=== PATIENT | female | born 1935 | race Caucasian/White ===

== ENCOUNTER 2016-10-27 10:44 | Inpatient (IN) | payer MEDICARE, OTHER ==
[~2016-10-27] VITALS: Ht 157.5 cm; Wt 61.2 kg
[~2016-10-27 10:44] MED LIST: ASPI81TA2 PO; CARV6.25 PO; LISI10TA5 PO
[2016-10-27] MEDS ORDERED: IV NS 0.9% 1,000 ML BAG IV ONE (11:30)
[2016-10-27] MEDS ORDERED: IV SET PRIMARY 1 EA INFUS.SET MC ONE (11:53)
[2016-10-27] MEDS ORDERED: IV NS 0.9% 1,000 ML ONE (11:53)
[2016-10-27 11:56] LABS: BASOPHILS # (AUTO) 0.1 /CMM (0.0-0.2); BASOPHILS % (AUTO) 0.8 % (0.0-2.0); DIFF TOTAL % 100 %; EOSINOPHILS # (AUTO) 0.1 /CMM (0.0-0.7); EOSINOPHILS % (AUTO) 1.9 % (0.0-6.0); HEMATOCRIT 43 % (33-45); HEMOGLOBIN 14.1 g/dL (11.5-14.8); LYMPHOCYTES # (AUTO) 1.6 /CMM (0.8-4.8); LYMPHOCYTES % (AUTO) 25.8 % (20.0-44.0); MEAN CORPUSCULAR HEMOGLOBIN 29 PG (26.0-33.0); MEAN CORPUSCULAR HGB CONC 33 g/dl (31.0-36.0); MEAN CORPUSCULAR VOLUME 90 fL (82-100); MONOCYTES # (AUTO) 0.4 /CMM (0.1-1.30); MONOCYTES % (AUTO) 7.1 % (2.0-12.0); NEUTROPHILS # (AUTO) 4.1 /CMM (1.8-8.9); NEUTROPHILS % (AUTO) 64.4 % (43.0-81.0); PLATELET COUNT (AUTO) 220 /CMM (150-450); RED BLOOD CELL COUNT(AUTO) 4.84 MIL/uL (4.0-5.2); WHITE BLOOD COUNT (AUTO) 6.3 K/uL (4.3-11.0)
[2016-10-27 12:03] LABS: ADD UA MICROSCOPIC NO; KETONES,URINE Negative (NEGATIVE); LEUKOCYTE ESTERASE ,URINE Negative (NEGATIVE)
[2016-10-27 12:03] LABS: ANION GAP 16 (5-14); CARBON DIOXIDE 23 mmol/L (21-32); CHLORIDE 103 mmol/L (98-107); CREATININE 0.9 mg/dL (0.6-1.3); GLUCOSE 82 mg/dL (74-106); SODIUM SERUM 137 mmol/L (136-145); UREA NITROGEN, BLOOD 22 mg/dL (7-18)
[2016-10-27 12:09] LABS: ALANINE AMINOTRANSFERASE 20 U/L (12-78); ALBUMIN 3.9 g/dL (3.4-5.0); ASPARTATE AMINOTRANSFERASE 32 U/L (15-37); BILIRUBIN,DIRECT 0.1 mg/dL (0.0-0.2); BILIRUBIN,TOTAL 0.7 mg/dL (0.2-1.0); TOTAL PROTEIN, SERUM 7.5 g/dL (6.4-8.2)
[2016-10-27 12:10] LABS: INDIRECT BILIRUBIN 0.6 mg/dL (0.0-1.1)
[2016-10-27 12:11] LABS: TROPONIN I < 0.017 ng/mL (0.00-0.056)
[2016-10-27] MEDS ORDERED: AMLO5TAB2 PO (12:22)
[2016-10-27] MEDS ORDERED: FENO54TA PO (12:22)
[2016-10-27] MEDS ORDERED: PANT40TA4 PO (12:22)
[2016-10-27 13:00] VITALS: BP 157/76
[2016-10-27] MEDS ORDERED: MAGNESIUM HYDROXIDE 30 ML UDC PO PRN (13:00)
[2016-10-27] MEDS ORDERED: Z GUARD REMEDY 2 OZ OINT TP PRN (13:00)
[2016-10-27] MEDS ORDERED: ONDANSETRON HCL/PF 4 MG/2 ML VIAL IVP PRN (13:00)
[2016-10-27] MEDS ORDERED: ACETAMINOPHEN 325 MG TABLET PO PRN (13:00)
[2016-10-27] MEDS ORDERED: MORPHINE SULFATE INJ 2 MG/ML DISP.SYRIN IV PRN (13:00)
[2016-10-27] MEDS ORDERED: MAG HYDROX/AL HYDROX/SIMETH 30 ML UDC PO PRN (13:00)
[2016-10-27] MEDS ORDERED: HYDROCODONE/APAP 5/325MG 1 EACH TABLET PO PRN (13:00)
[2016-10-27] MEDS ORDERED: ZOLPIDEM TARTRATE 5 MG TABLET PO PRN (13:00)
[2016-10-27] MEDS ORDERED: IV SET PRIMARY PUMP SET 1 EA INFUS.SET MC ONE (15:12)
[2016-10-27] MEDS: IV NS 0.9% 1,000 ML IV PRN (15:17)
[2016-10-27 16:00] VITALS: BP 167/92
[2016-10-27] MEDS: hydrALAZINE HCL 10 MG TABLET PO PRN (16:46)
[2016-10-27] MEDS: CARVEDILOL 6.25 MG TABLET PO SCH (16:46)
[2016-10-27 20:00] VITALS: BP 131/65
[2016-10-27 20:25] VITALS: BP 131/62
[2016-10-28 04:00] VITALS: BP 128/66
[2016-10-28] MEDS: IV NS 0.9% 1,000 ML IV PRN ×2 (06:14→16:07)
[2016-10-28] MEDS ORDERED: PANTOPRAZOLE 40 MG TABLET.DR PO SCH (07:30)
[2016-10-28 07:46] LABS: BASOPHILS # (AUTO) 0.1 /CMM (0.0-0.2); BASOPHILS % (AUTO) 1.3 % (0.0-2.0); DIFF TOTAL % 100 %; EOSINOPHILS # (AUTO) 0.1 /CMM (0.0-0.7); EOSINOPHILS % (AUTO) 2.4 % (0.0-6.0); HEMATOCRIT 37 % (33-45); HEMOGLOBIN 12.4 g/dL (11.5-14.8); LYMPHOCYTES # (AUTO) 1.2 /CMM (0.8-4.8); LYMPHOCYTES % (AUTO) 30.2 % (20.0-44.0); MEAN CORPUSCULAR HEMOGLOBIN 30 PG (26.0-33.0); MEAN CORPUSCULAR HGB CONC 34 g/dl (31.0-36.0); MEAN CORPUSCULAR VOLUME 89 fL (82-100); MONOCYTES # (AUTO) 0.4 /CMM (0.1-1.30); MONOCYTES % (AUTO) 9.9 % (2.0-12.0); NEUTROPHILS # (AUTO) 2.3 /CMM (1.8-8.9); NEUTROPHILS % (AUTO) 56.2 % (43.0-81.0); PLATELET COUNT (AUTO) 204 /CMM (150-450); RED BLOOD CELL COUNT(AUTO) 4.13 MIL/uL (4.0-5.2); WHITE BLOOD COUNT (AUTO) 4.1 K/uL (4.3-11.0)
[2016-10-28 08:00] VITALS: BP 174/90
[2016-10-28 08:07] LABS: CALCIUM, SERUM 8.5 mg/dL (8.5-10.1); CREATININE 0.9 mg/dL (0.6-1.3); PHOSPHORUS 3.1 mg/dL (2.5-4.9); POTASSIUM 3.3 mmol/L (3.5-5.1)
[2016-10-28] MEDS: CARVEDILOL 6.25 MG TABLET PO SCH ×2 (08:09→16:45)
[2016-10-28] MEDS ORDERED: AMLODIPINE BESYLATE 5 MG TABLET PO SCH (09:00)
[2016-10-28] MEDS ORDERED: POTASSIUM CHLORIDE 20 MEQ TAB.PRT.SR PO ONE (11:00)
[2016-10-28 16:00] VITALS: BP 179/88
[2016-10-28] MEDS ORDERED: IV SET PRIMARY PUMP SET 1 EA INFUS.SET MC ONE (16:07)
[2016-10-28 16:47] VITALS: BP 179/88
[2016-10-28] MEDS: hydrALAZINE HCL 10 MG TABLET PO PRN (16:47)
== END 2016-10-29 03:03 | disposition home or self-care (01) | DRG 392 ==
LOC: ER 10:46 → MED 13:09
PROVIDERS: ADMIT Internal Medicine; ATTEND Internal Medicine
DX: R13.10 Dysphagia, unspecified (principal); I48.91 Unspecified atrial fibrillation; I10 Essential (primary) hypertension; K21.9 Gastro-esophageal reflux disease without esophagitis; E78.5 Hyperlipidemia, unspecified; E86.0 Dehydration; Z87.11 Personal history of peptic ulcer disease
CPT/HCPCS: 36415; 80048-TC; 80076-TC; 81000-TC; 83690-TC; 83735-TC; 84100-TC; 84484-TC; 85025-TC; 87081-TC; 97001-TC; A4606; J7030; Z7610

== ENCOUNTER 2018-05-29 09:42 | Outpatient (CLI) | payer MEDICARE, OTHER ==
[~2018-05-29 09:42] MED LIST changes: +AMLO5TAB2 PO; -ASPI81TA2 PO; +FENO54TA PO; -LISI10TA5 PO; +PANT40TA4 PO
== END 2018-05-29 23:59 | disposition home or self-care (01) ==
LOC: RAD 09:42
PROVIDERS: ATTEND Family Medicine
DX: Z01.818 Encounter for other preprocedural examination (principal); I70.0 Atherosclerosis of aorta; M81.0 Age-related osteoporosis without current pathological fracture
CPT/HCPCS: 71046

== ENCOUNTER 2018-08-07 16:19 | Outpatient (CLI) | payer MEDICARE, OTHER ==
[~2018-08-07 16:19] MED LIST changes: -AMLO5TAB2 PO; +AMLO5TAB7 PO
== END 2018-08-07 23:59 | disposition home or self-care (01) ==
LOC: RAD 16:19
PROVIDERS: ATTEND Family Medicine
DX: M25.862 Other specified joint disorders, left knee (principal); I10 Essential (primary) hypertension; K21.9 Gastro-esophageal reflux disease without esophagitis; M19.90 Unspecified osteoarthritis, unspecified site
CPT/HCPCS: 73562

== ENCOUNTER 2023-10-13 21:17 | Inpatient (IN) | payer MEDICARE, OTHER ==
[~2023-10-13] VITALS: Ht 157.5 cm; Wt 62.1 kg
[~2023-10-13 21:17] MED LIST changes: +AMLO-212 PO; -AMLO5TAB7 PO; -PANT40TA4 PO; +PANT40TA49 PO
[2023-10-14] MEDS ORDERED: LORAZEPAM 1 MG TABLET ONE ×2 (01:26→01:29)
[2023-10-14] MEDS ORDERED: LORAZEPAM 1 MG TABLET PO ONE (01:30)
[2023-10-14 03:43] LABS: BASOPHILS # (AUTO) 0.1 K/uL (0.0-0.2); BASOPHILS % (AUTO) 1.1 % (0.0-2.0); EOSINOPHILS # (AUTO) 0.5 K/uL (0.0-0.7); EOSINOPHILS % (AUTO) 4.6 % (0.0-6.0); HEMATOCRIT 41 % (33-45); HEMOGLOBIN 13.2 g/dL (11.5-14.8); LYMPHOCYTES # (AUTO) 1.7 K/uL (0.8-4.8); LYMPHOCYTES % (AUTO) 16.1 % (20.0-44.0); MEAN CORPUSCULAR HEMOGLOBIN 30 PG (26.0-33.0); MEAN CORPUSCULAR HGB CONC 33 g/dl (31.0-36.0); MEAN CORPUSCULAR VOLUME 93 fL (82-100); MONOCYTES % (AUTO) 9.3 % (2.0-12.0); NEUTROPHILS # (AUTO) 7.4 K/uL (1.8-8.9); NEUTROPHILS % (AUTO) 68.9 % (43.0-81.0); PLATELET COUNT (AUTO) 356 K/uL (150-450); RED BLOOD CELL COUNT(AUTO) 4.38 MIL/uL (4.0-5.2); RED CELL DISTRIBUTION WIDTH 14.5 % (11.5-15.0); WHITE BLOOD COUNT (AUTO) 10.8 K/uL (4.3-11.0)
[2023-10-14 03:58] LABS: ALANINE AMINOTRANSFERASE 28 U/L (12-78); ALBUMIN 2.1 g/dL (3.4-5.0); ALCOHOL, BLOOD < 3 mg/dL (0-10); ALKALINE PHOSPHATASE 157 U/L (46-116); ASPARTATE AMINOTRANSFERASE 25 U/L (15-37); BILIRUBIN,DIRECT 0.1 mg/dL (0.0-0.2); BILIRUBIN,TOTAL 0.4 mg/dL (0.2-1.0); CARBON DIOXIDE 30 mmol/L (21-32); CHLORIDE 102 mmol/L (98-107); CREATININE 1.5 mg/dL (0.6-1.3); GLUCOSE 89 mg/dL (74-106); POTASSIUM 4.1 mmol/L (3.5-5.1); SODIUM SERUM 139 mmol/L (136-145); TOTAL PROTEIN, SERUM 6.8 g/dL (6.4-8.2); UREA NITROGEN, BLOOD 33 mg/dL (7-18)
[2023-10-14 04:09] LABS: ACETAMINOPHEN <10 ug/ml (10-30); SALICYLATE 0.6 mg/dL (2.8-20.0)
[2023-10-14] MEDS ORDERED: NYST1POW2 MC (08:27)
[2023-10-14] MEDS ORDERED: IPRA3AMP22 IH (08:27)
[2023-10-14] MEDS ORDERED: MAGN400O6 PO (08:27)
[2023-10-14] MEDS ORDERED: ATOR20TA PO (08:27)
[2023-10-14] MEDS ORDERED: MELA3TAB41 PO (08:27)
[2023-10-14] MEDS ORDERED: ASPI-1169 PO (08:27)
[2023-10-14] MEDS ORDERED: METO100T14 PO (08:27)
[2023-10-14] MEDS ORDERED: CLON0.1T PO (08:27)
[2023-10-14] MEDS ORDERED: NA P133E RC (08:27)
[2023-10-14] MEDS ORDERED: POLY119P3 PO (08:27)
[2023-10-14] MEDS ORDERED: ACET-2605 PO (08:27)
[2023-10-14] MEDS ORDERED: MULT-213 PO (08:27)
[2023-10-14] MEDS ORDERED: HYDR-4303 PO (08:27)
[2023-10-14] MEDS ORDERED: CHOL200059 PO (08:27)
[2023-10-14] MEDS ORDERED: SACU1TAB7 PO (08:27)
[2023-10-14] MEDS ORDERED: IODOPHOR BNOSTRILS (08:27)
[2023-10-14] MEDS ORDERED: [UNRECOGNIZED DRUG - CODE] TP (08:27)
[2023-10-14] MEDS ORDERED: ACET-868 PO (08:27)
[2023-10-14] MEDS ORDERED: DIGO125T PO (08:27)
[2023-10-14] MEDS ORDERED: PANT40TA2 PO (08:27)
[2023-10-14] MEDS ORDERED: BISA10SU11 RC (08:27)
[2023-10-14] MEDS ORDERED: DOCU100C36 PO (08:27)
[2023-10-14] MEDS ORDERED: DILT30TA14 PO (08:27)
[2023-10-14] MEDS ORDERED: AMIO200T5 PO (08:27)
[2023-10-14] MEDS ORDERED: RIVA15TA PO (08:27)
[2023-10-14] MEDS ORDERED: BUME1TAB8 PO (08:27)
[2023-10-14] MEDS ORDERED: BENZ-13 PO (08:27)
[2023-10-14] MEDS ORDERED: AMIN30LI2 PO (08:27)
[2023-10-14 09:30] VITALS: BP 145/67; TEMP 97.3; O2SAT 92
[2023-10-14] MEDS ORDERED: ACETAMINOPHEN 325 MG TABLET PO PRN ×2 (09:30→13:00)
[2023-10-14] MEDS ORDERED: LORAZEPAM 0.5 MG TABLET PO PRN (09:30)
[2023-10-14] MEDS ORDERED: BLOOD SUGAR DIAGNOSTIC 1 EACH STRIP IN ONE (09:30)
[2023-10-14] MEDS ORDERED: MAGNESIUM HYDROXIDE 30 ML UDC PO PRN ×2 (09:30→13:00)
[2023-10-14] MEDS ORDERED: MAG HYDROX/AL HYDROX/SIMETH 30 ML UDC PO PRN (09:30)
[2023-10-14] MEDS ORDERED: BISACODYL SUPP (10 MG) 10 MG/SUPP.RECT SUPP.RECT RC PRN (13:00)
[2023-10-14] MEDS ORDERED: CLONIDINE HCL 0.1 MG TABLET PO PRN (13:00)
[2023-10-14] MEDS ORDERED: ACETAMINOPHEN ES 500 MG TABLET PO PRN (13:00)
[2023-10-14] MEDS ORDERED: POLYETHYLENE GLYCOL 3350 17 GM POWD.PACK PO PRN (13:00)
[2023-10-14] MEDS ORDERED: BENZONATATE 100 MG CAPSULE PO PRN (13:00)
[2023-10-14 16:00] VITALS: BP 138/65; TEMP 97.8; O2SAT 91
[2023-10-14] MEDS: SACUBITRIL/VALSARTAN 1 EACH TABLET PO SCH (17:00)
[2023-10-14] MEDS: BUMETANIDE (1 MG) 1 MG TABLET PO SCH (17:22)
[2023-10-14] MEDS: DOCUSATE SODIUM 100 MG CAPSULE PO SCH (17:23)
[2023-10-14] MEDS: AMIODARONE HCL 200 MG TABLET PO SCH (17:23)
[2023-10-14] MEDS: CARVEDILOL 6.25 MG TABLET PO SCH (17:28)
[2023-10-14] MEDS: NYSTATIN TOP POWDER 15 GM BOTTLE TP SCH (17:28)
[2023-10-14 20:22] VITALS: BP 130/67; TEMP 97.8; O2SAT 93
[2023-10-14] MEDS: MIRTAZAPINE 15 MG TABLET PO SCH (21:51)
[2023-10-14] MEDS: ATORVASTATIN 10 MG TABLET PO SCH (21:51)
[2023-10-14] MEDS ORDERED: Medication Not On Formulary EA (Melatonin 3 MG) PO SCH (22:00)
[2023-10-14] MEDS ORDERED: ZOLPIDEM TARTRATE 5 MG TABLET PO PRN (22:00)
[2023-10-15 08:00] VITALS: BP 120/68; TEMP 97.7; O2SAT 98
[2023-10-15] MEDS: PANTOPRAZOLE 40 MG TABLET.DR PO SCH (08:12)
[2023-10-15] MEDS ORDERED: FENOFIBRATE 54 MG PO SCH (09:00)
[2023-10-15] MEDS: PROSTAT (PYXIS) 30 ML UDC PO SCH (09:00)
[2023-10-15] MEDS: DOCUSATE SODIUM 100 MG CAPSULE PO SCH ×2 (09:53→17:00)
[2023-10-15] MEDS: ASPIRIN 81 MG TAB.CHEW PO SCH (09:53)
[2023-10-15] MEDS: CHOLECALCIFEROL 1,000 UNIT TABLET (VIT D3) PO SCH (09:53)
[2023-10-15] MEDS: BUMETANIDE (1 MG) 1 MG TABLET PO SCH ×2 (09:53→17:24)
[2023-10-15] MEDS: AMIODARONE HCL 200 MG TABLET PO SCH ×2 (09:54→17:32)
[2023-10-15] MEDS: CARVEDILOL 6.25 MG TABLET PO SCH ×2 (09:55→17:31)
[2023-10-15] MEDS: DIGOXIN 0.125 MG TABLET PO SCH (09:55)
[2023-10-15] MEDS: AMLODIPINE BESYLATE 5 MG TABLET PO SCH (09:55)
[2023-10-15] MEDS: RIVAROXABAN 15 MG TABLET PO SCH (09:56)
[2023-10-15] MEDS: MULTIVIT W/MINERALS 1 TAB TABLET PO SCH (09:57)
[2023-10-15] MEDS: NYSTATIN TOP POWDER 15 GM BOTTLE TP SCH ×2 (10:02→17:24)
[2023-10-15] MEDS: SACUBITRIL/VALSARTAN 1 EACH TABLET PO SCH ×2 (10:20→17:30)
[2023-10-15 16:00] VITALS: BP 108/51; TEMP 98; O2SAT 93
[2023-10-15 19:20] LABS: APPEARANCE,URINE CLOUDY (CLEAR); BILIRUBIN,URINE NEGATIVE (NEGATIVE); BLOOD, URINE 1+ Ery/uL (NEGATIVE); COLOR,URINE YELLOW (YELLOW); KETONES,URINE NEGATIVE (NEGATIVE); LEUKOCYTE ESTERASE ,URINE 3+ (NEGATIVE); NITRITE, URINE POSITIVE (NEGATIVE); PROTEIN,URINE 2+ mg/dl (NEGATIVE); UGLUCOSE NEGATIVE (NEGATIVE); UROBILINOGEN,URINE 0.2 EU/dL (0.2)
[2023-10-15 19:27] LABS: ADD URINE CULTURE YES; BACTERIA,URINE 4+ /HPF (None Seen); RBC,URINE 21-50 /HPF (0-2); WBC,URINE 51-80 /HPF (0-3)
[2023-10-15 20:25] VITALS: BP 106/58; TEMP 97.9; O2SAT 93
[2023-10-15] MEDS: MIRTAZAPINE 15 MG TABLET PO SCH (21:40)
[2023-10-15] MEDS: OLANZAPINE 2.5 MG TABLET PO SCH (21:40)
[2023-10-15] MEDS: ATORVASTATIN 10 MG TABLET PO SCH (21:40)
[2023-10-16 08:00] VITALS: BP 117/55; TEMP 97.9; O2SAT 95
[2023-10-16] MEDS: PANTOPRAZOLE 40 MG TABLET.DR PO SCH (08:04)
[2023-10-16] MEDS: PROSTAT (PYXIS) 30 ML UDC PO SCH (09:00)
[2023-10-16] MEDS: BUMETANIDE (1 MG) 1 MG TABLET PO SCH ×2 (09:18→17:00)
[2023-10-16] MEDS: DOCUSATE SODIUM 100 MG CAPSULE PO SCH ×2 (09:19→17:40)
[2023-10-16] MEDS: ASPIRIN 81 MG TAB.CHEW PO SCH (09:20)
[2023-10-16] MEDS: RIVAROXABAN 15 MG TABLET PO SCH (09:20)
[2023-10-16] MEDS: AMLODIPINE BESYLATE 5 MG TABLET PO SCH (09:20)
[2023-10-16] MEDS: CARVEDILOL 6.25 MG TABLET PO SCH ×2 (09:22→17:00)
[2023-10-16] MEDS: CHOLECALCIFEROL 1,000 UNIT TABLET (VIT D3) PO SCH (09:22)
[2023-10-16] MEDS: MULTIVIT W/MINERALS 1 TAB TABLET PO SCH (09:23)
[2023-10-16] MEDS: DIGOXIN 0.125 MG TABLET PO SCH (09:23)
[2023-10-16] MEDS: AMIODARONE HCL 200 MG TABLET PO SCH ×2 (09:23→17:00)
[2023-10-16] MEDS: NYSTATIN TOP POWDER 15 GM BOTTLE TP SCH ×2 (09:26→17:32)
[2023-10-16] MEDS: SACUBITRIL/VALSARTAN 1 EACH TABLET PO SCH ×2 (09:26→17:00)
[2023-10-16 16:00] VITALS: BP 93/50; TEMP 97.9; O2SAT 96
[2023-10-16 20:29] VITALS: BP 123/59; TEMP 97.7; O2SAT 95
[2023-10-16] MEDS: NITROFURANTOIN/MONOHYDRATE MACROCRYSTALS 100 MG CAPSULE PO SCH (20:56)
[2023-10-16] MEDS: ATORVASTATIN 10 MG TABLET PO SCH (21:14)
[2023-10-16] MEDS: OLANZAPINE 2.5 MG TABLET PO SCH (21:14)
[2023-10-16] MEDS: MIRTAZAPINE 15 MG TABLET PO SCH (21:14)
[2023-10-17] MEDS: PANTOPRAZOLE 40 MG TABLET.DR PO SCH (07:45)
[2023-10-17 08:00] VITALS: BP 136/68; TEMP 97.9; O2SAT 97
[2023-10-17] MEDS: AMIODARONE HCL 200 MG TABLET PO SCH ×2 (09:00→16:47)
[2023-10-17] MEDS: DIGOXIN 0.125 MG TABLET PO SCH (09:00)
[2023-10-17] MEDS: PROSTAT (PYXIS) 30 ML UDC PO SCH (09:00)
[2023-10-17] MEDS: RIVAROXABAN 15 MG TABLET PO SCH (09:08)
[2023-10-17] MEDS: CHOLECALCIFEROL 1,000 UNIT TABLET (VIT D3) PO SCH (09:09)
[2023-10-17] MEDS: BUMETANIDE (1 MG) 1 MG TABLET PO SCH ×2 (09:10→16:46)
[2023-10-17] MEDS: DOCUSATE SODIUM 100 MG CAPSULE PO SCH ×2 (09:10→16:49)
[2023-10-17] MEDS: CARVEDILOL 6.25 MG TABLET PO SCH ×2 (09:10→16:48)
[2023-10-17] MEDS: AMLODIPINE BESYLATE 5 MG TABLET PO SCH (09:11)
[2023-10-17] MEDS: MULTIVIT W/MINERALS 1 TAB TABLET PO SCH (09:11)
[2023-10-17] MEDS: ASPIRIN 81 MG TAB.CHEW PO SCH (09:15)
[2023-10-17] MEDS: NITROFURANTOIN/MONOHYDRATE MACROCRYSTALS 100 MG CAPSULE PO SCH ×2 (09:15→22:06)
[2023-10-17] MEDS: SACUBITRIL/VALSARTAN 1 EACH TABLET PO SCH ×2 (09:16→16:51)
[2023-10-17] MEDS: NYSTATIN TOP POWDER 15 GM BOTTLE TP SCH ×2 (09:18→16:51)
[2023-10-17] MEDS: HYDROCODONE/APAP 5/325MG TABLET PO PRN ×2 (13:41→22:12)
[2023-10-17 16:00] VITALS: BP 104/55; TEMP 97.9; O2SAT 95
[2023-10-17 19:59] VITALS: BP 104/60; TEMP 98.1; O2SAT 98
[2023-10-17] MEDS: OLANZAPINE 2.5 MG TABLET PO SCH (22:07)
[2023-10-17] MEDS: MIRTAZAPINE 15 MG TABLET PO SCH (22:07)
[2023-10-17] MEDS: ATORVASTATIN 10 MG TABLET PO SCH (22:07)
[2023-10-18 08:00] VITALS: BP 111/55; TEMP 98.1; O2SAT 97
[2023-10-18] MEDS: PANTOPRAZOLE 40 MG TABLET.DR PO SCH (08:23)
[2023-10-18] MEDS: Z GUARD REMEDY 4 OZ OINT TP SCH (08:32)
[2023-10-18] MEDS: ASPIRIN 81 MG TAB.CHEW PO SCH (08:33)
[2023-10-18] MEDS: MULTIVIT W/MINERALS 1 TAB TABLET PO SCH (08:33)
[2023-10-18] MEDS: CARVEDILOL 6.25 MG TABLET PO SCH ×2 (08:34→16:51)
[2023-10-18] MEDS: AMIODARONE HCL 200 MG TABLET PO SCH ×2 (08:34→16:51)
[2023-10-18] MEDS: NITROFURANTOIN/MONOHYDRATE MACROCRYSTALS 100 MG CAPSULE PO SCH ×2 (08:35→21:18)
[2023-10-18] MEDS: DOCUSATE SODIUM 100 MG CAPSULE PO SCH ×2 (08:35→16:51)
[2023-10-18] MEDS: AMLODIPINE BESYLATE 5 MG TABLET PO SCH (08:35)
[2023-10-18] MEDS: CHOLECALCIFEROL 1,000 UNIT TABLET (VIT D3) PO SCH (08:35)
[2023-10-18] MEDS: DIGOXIN 0.125 MG TABLET PO SCH (08:36)
[2023-10-18] MEDS: BUMETANIDE (1 MG) 1 MG TABLET PO SCH ×2 (08:36→16:51)
[2023-10-18] MEDS: RIVAROXABAN 15 MG TABLET PO SCH (08:36)
[2023-10-18] MEDS: NYSTATIN TOP POWDER 15 GM BOTTLE TP SCH ×2 (08:37→16:53)
[2023-10-18] MEDS: SACUBITRIL/VALSARTAN 1 EACH TABLET PO SCH ×2 (08:38→16:53)
[2023-10-18] MEDS: PROSTAT (PYXIS) 30 ML UDC PO SCH (09:36)
[2023-10-18 16:00] VITALS: BP 126/62; TEMP 97.9; O2SAT 96
[2023-10-18 20:24] VITALS: BP 120/78; TEMP 98.1; O2SAT 95
[2023-10-18] MEDS: ATORVASTATIN 10 MG TABLET PO SCH (21:17)
[2023-10-18] MEDS: MIRTAZAPINE 15 MG TABLET PO SCH (21:17)
[2023-10-18] MEDS: OLANZAPINE 2.5 MG TABLET PO SCH (21:18)
[2023-10-19 08:00] VITALS: BP 136/67; TEMP 97.4; O2SAT 99
[2023-10-19] MEDS: CHOLECALCIFEROL 1,000 UNIT TABLET (VIT D3) PO SCH (09:06)
[2023-10-19] MEDS: DOCUSATE SODIUM 100 MG CAPSULE PO SCH ×2 (09:06→16:53)
[2023-10-19] MEDS: MULTIVIT W/MINERALS 1 TAB TABLET PO SCH (09:06)
[2023-10-19] MEDS: ASPIRIN 81 MG TAB.CHEW PO SCH (09:06)
[2023-10-19] MEDS: NITROFURANTOIN/MONOHYDRATE MACROCRYSTALS 100 MG CAPSULE PO SCH (09:06)
[2023-10-19] MEDS: PANTOPRAZOLE 40 MG TABLET.DR PO SCH (09:06)
[2023-10-19] MEDS: BUMETANIDE (1 MG) 1 MG TABLET PO SCH ×2 (09:07→16:53)
[2023-10-19] MEDS: CARVEDILOL 6.25 MG TABLET PO SCH ×2 (09:10→16:54)
[2023-10-19] MEDS: DIGOXIN 0.125 MG TABLET PO SCH (09:10)
[2023-10-19] MEDS: AMIODARONE HCL 200 MG TABLET PO SCH ×2 (09:10→16:55)
[2023-10-19] MEDS: AMLODIPINE BESYLATE 5 MG TABLET PO SCH (09:10)
[2023-10-19] MEDS: RIVAROXABAN 15 MG TABLET PO SCH (09:13)
[2023-10-19] MEDS: Z GUARD REMEDY 4 OZ OINT TP SCH (09:28)
[2023-10-19] MEDS: SACUBITRIL/VALSARTAN 1 EACH TABLET PO SCH ×2 (09:29→16:55)
[2023-10-19] MEDS: NYSTATIN TOP POWDER 15 GM BOTTLE TP SCH ×2 (09:31→17:05)
[2023-10-19 14:44] LABS: BASOPHILS # (AUTO) 0.1 K/uL (0.0-0.2); BASOPHILS % (AUTO) 1.2 % (0.0-2.0); EOSINOPHILS # (AUTO) 0.2 K/uL (0.0-0.7); EOSINOPHILS % (AUTO) 2.1 % (0.0-6.0); HEMATOCRIT 35 % (33-45); HEMOGLOBIN 11.4 g/dL (11.5-14.8); LYMPHOCYTES # (AUTO) 1.3 K/uL (0.8-4.8); LYMPHOCYTES % (AUTO) 14.5 % (20.0-44.0); MEAN CORPUSCULAR HEMOGLOBIN 30 PG (26.0-33.0); MEAN CORPUSCULAR HGB CONC 33 g/dl (31.0-36.0); MEAN CORPUSCULAR VOLUME 91 fL (82-100); MONOCYTES % (AUTO) 10.9 % (2.0-12.0); NEUTROPHILS # (AUTO) 6.4 K/uL (1.8-8.9); NEUTROPHILS % (AUTO) 71.3 % (43.0-81.0); PLATELET COUNT (AUTO) 337 K/uL (150-450); RED CELL DISTRIBUTION WIDTH 14.6 % (11.5-15.0)
[2023-10-19 15:19] LABS: ALANINE AMINOTRANSFERASE 17 U/L (12-78); ALBUMIN 1.8 g/dL (3.4-5.0); ALKALINE PHOSPHATASE 104 U/L (46-116); ASPARTATE AMINOTRANSFERASE 15 U/L (15-37); BILIRUBIN,TOTAL 0.4 mg/dL (0.2-1.0); CALCIUM, SERUM 8.4 mg/dL (8.5-10.1); CARBON DIOXIDE 23 mmol/L (21-32); CHLORIDE 100 mmol/L (98-107); CREATININE 2.1 mg/dL (0.6-1.3); GLUCOSE 135 mg/dL (74-106); SODIUM SERUM 134 mmol/L (136-145); TOTAL PROTEIN, SERUM 6.1 g/dL (6.4-8.2); UREA NITROGEN, BLOOD 56 mg/dL (7-18)
[2023-10-19 16:00] VITALS: BP 116/65; TEMP 98.6; O2SAT 94
[2023-10-19] MEDS ORDERED: AMOX/CLAVULANATE 500 MG TABLET PO SCH (17:00)
[2023-10-19] MEDS: AMOX/CLAVULANATE 250 MG TABLET PO SCH (17:02)
[2023-10-19 20:00] VITALS: BP 138/75; TEMP 98.6; O2SAT 98
[2023-10-19] MEDS: MIRTAZAPINE 15 MG TABLET PO SCH (21:50)
[2023-10-19] MEDS: ATORVASTATIN 10 MG TABLET PO SCH (21:50)
[2023-10-19] MEDS: OLANZAPINE 2.5 MG TABLET PO SCH (21:51)
[2023-10-20 08:00] VITALS: BP 110/53; TEMP 97.8; O2SAT 96
[2023-10-20] MEDS: CHOLECALCIFEROL 1,000 UNIT TABLET (VIT D3) PO SCH (11:40)
[2023-10-20] MEDS: AMIODARONE HCL 200 MG TABLET PO SCH ×2 (11:40→17:32)
[2023-10-20] MEDS: DIGOXIN 0.125 MG TABLET PO SCH (11:40)
[2023-10-20] MEDS: CARVEDILOL 6.25 MG TABLET PO SCH ×2 (11:40→17:32)
[2023-10-20] MEDS: ASPIRIN 81 MG TAB.CHEW PO SCH (11:42)
[2023-10-20] MEDS: AMLODIPINE BESYLATE 5 MG TABLET PO SCH (11:42)
[2023-10-20] MEDS: PANTOPRAZOLE 40 MG TABLET.DR PO SCH (11:43)
[2023-10-20] MEDS: MULTIVIT W/MINERALS 1 TAB TABLET PO SCH (11:43)
[2023-10-20] MEDS: DOCUSATE SODIUM 100 MG CAPSULE PO SCH ×2 (11:43→17:34)
[2023-10-20] MEDS: NYSTATIN TOP POWDER 15 GM BOTTLE TP SCH (11:44)
[2023-10-20] MEDS: Z GUARD REMEDY 4 OZ OINT TP SCH (11:45)
[2023-10-20] MEDS: RIVAROXABAN 15 MG TABLET PO SCH (11:53)
[2023-10-20] MEDS: PROSOURCE / PROSTAT (PYXIS) 30 ML UDC PO SCH (12:13)
[2023-10-20] MEDS: AMOX/CLAVULANATE 250 MG TABLET PO SCH ×2 (13:14→17:40)
[2023-10-20 16:00] VITALS: BP 130/57; TEMP 98; O2SAT 97
[2023-10-20 20:16] VITALS: BP 103/53; TEMP 98; O2SAT 96
[2023-10-20] MEDS: ATORVASTATIN 10 MG TABLET PO SCH (21:36)
[2023-10-20] MEDS: MIRTAZAPINE 15 MG TABLET PO SCH (21:36)
[2023-10-20] MEDS: OLANZAPINE 2.5 MG TABLET PO SCH (21:36)
[2023-10-21] MEDS: PANTOPRAZOLE 40 MG TABLET.DR PO SCH (07:38)
[2023-10-21 08:00] VITALS: BP 137/60; TEMP 98.4; O2SAT 95
[2023-10-21] MEDS: AMIODARONE HCL 200 MG TABLET PO SCH ×2 (09:00→17:00)
[2023-10-21] MEDS: AMLODIPINE BESYLATE 5 MG TABLET PO SCH (09:00)
[2023-10-21] MEDS: PROSOURCE / PROSTAT (PYXIS) 30 ML UDC PO SCH (09:00)
[2023-10-21] MEDS: DOCUSATE SODIUM 100 MG CAPSULE PO SCH ×2 (09:48→17:00)
[2023-10-21] MEDS: CHOLECALCIFEROL 1,000 UNIT TABLET (VIT D3) PO SCH (09:48)
[2023-10-21] MEDS: MULTIVIT W/MINERALS 1 TAB TABLET PO SCH (09:48)
[2023-10-21] MEDS: DIGOXIN 0.125 MG TABLET PO SCH (09:48)
[2023-10-21] MEDS: ASPIRIN 81 MG TAB.CHEW PO SCH (09:49)
[2023-10-21] MEDS: CARVEDILOL 6.25 MG TABLET PO SCH ×2 (09:49→17:00)
[2023-10-21] MEDS: RIVAROXABAN 15 MG TABLET PO SCH (09:50)
[2023-10-21] MEDS: AMOX/CLAVULANATE 250 MG TABLET PO SCH ×2 (09:52→18:02)
[2023-10-21] MEDS: Z GUARD REMEDY 4 OZ OINT TP SCH (09:53)
[2023-10-21] MEDS: HYDROCODONE/APAP 5/325MG TABLET PO PRN (14:40)
[2023-10-21 15:05] LABS: BASOPHILS # (AUTO) 0.1 K/uL (0.0-0.2); BASOPHILS % (AUTO) 0.7 % (0.0-2.0); EOSINOPHILS # (AUTO) 0.1 K/uL (0.0-0.7); EOSINOPHILS % (AUTO) 1.6 % (0.0-6.0); HEMATOCRIT 35 % (33-45); HEMOGLOBIN 11.3 g/dL (11.5-14.8); LYMPHOCYTES # (AUTO) 0.9 K/uL (0.8-4.8); LYMPHOCYTES % (AUTO) 10.2 % (20.0-44.0); MEAN CORPUSCULAR HEMOGLOBIN 29 PG (26.0-33.0); MEAN CORPUSCULAR HGB CONC 33 g/dl (31.0-36.0); MEAN CORPUSCULAR VOLUME 90 fL (82-100); MONOCYTES # (AUTO) 1.1 K/uL (0.1-1.30); MONOCYTES % (AUTO) 12.4 % (2.0-12.0); NEUTROPHILS # (AUTO) 6.9 K/uL (1.8-8.9); NEUTROPHILS % (AUTO) 75.1 % (43.0-81.0); PLATELET COUNT (AUTO) 362 K/uL (150-450); RED BLOOD CELL COUNT(AUTO) 3.85 MIL/uL (4.0-5.2); RED CELL DISTRIBUTION WIDTH 14.6 % (11.5-15.0); WHITE BLOOD COUNT (AUTO) 9.1 K/uL (4.3-11.0)
[2023-10-21 16:00] VITALS: BP 103/54; TEMP 98.4; O2SAT 95
[2023-10-21 16:11] LABS: ALANINE AMINOTRANSFERASE 33 U/L (12-78); ALBUMIN 1.8 g/dL (3.4-5.0); ALKALINE PHOSPHATASE 100 U/L (46-116); ASPARTATE AMINOTRANSFERASE 31 U/L (15-37); BILIRUBIN,TOTAL 0.3 mg/dL (0.2-1.0); CALCIUM, SERUM 8.4 mg/dL (8.5-10.1); CARBON DIOXIDE 25 mmol/L (21-32); CHLORIDE 97 mmol/L (98-107); CREATININE 2.3 mg/dL (0.6-1.3); GLUCOSE 117 mg/dL (74-106); MAGNESIUM 2.1 mg/dL (1.8-2.4); PHOSPHORUS 3.2 mg/dL (2.5-4.9); SODIUM SERUM 131 mmol/L (136-145); TOTAL PROTEIN, SERUM 6.3 g/dL (6.4-8.2); UREA NITROGEN, BLOOD 59 mg/dL (7-18)
[2023-10-21 16:38] LABS: ANISOCYTOSIS 1+; EOSINOPHILS % (MANUAL) 2 % (0-4); LYMPHOCYTES % (MANUAL) 10 % (16-48); MONOCYTES % (MANUAL) 7 % (0-11.0); NEUTROPHILS % (MANUAL) 81 (42-76); PLATELET ESTIMATE ADEQUATE
[2023-10-21 20:00] VITALS: BP 113/58; TEMP 98.1; O2SAT 97
[2023-10-21] MEDS: MIRTAZAPINE 15 MG TABLET PO SCH (22:28)
[2023-10-21] MEDS: ATORVASTATIN 10 MG TABLET PO SCH (22:28)
[2023-10-21] MEDS: OLANZAPINE 2.5 MG TABLET PO SCH (22:29)
[2023-10-22 08:00] VITALS: BP 122/50; TEMP 97.7; O2SAT 94
[2023-10-22] MEDS: ASPIRIN 81 MG TAB.CHEW PO SCH (08:08)
[2023-10-22] MEDS: DOCUSATE SODIUM 100 MG CAPSULE PO SCH ×2 (08:09→17:00)
[2023-10-22] MEDS: CHOLECALCIFEROL 1,000 UNIT TABLET (VIT D3) PO SCH (08:09)
[2023-10-22] MEDS: DIGOXIN 0.125 MG TABLET PO SCH (08:09)
[2023-10-22] MEDS: PANTOPRAZOLE 40 MG TABLET.DR PO SCH (08:09)
[2023-10-22] MEDS: RIVAROXABAN 15 MG TABLET PO SCH (08:09)
[2023-10-22] MEDS: MULTIVIT W/MINERALS 1 TAB TABLET PO SCH (08:09)
[2023-10-22] MEDS: AMIODARONE HCL 200 MG TABLET PO SCH ×2 (08:10→17:00)
[2023-10-22] MEDS: AMLODIPINE BESYLATE 5 MG TABLET PO SCH (08:11)
[2023-10-22] MEDS: ENSURE ENLIVE 237 ML LIQUID (VANILLA) PO SCH (08:12)
[2023-10-22] MEDS: Z GUARD REMEDY 4 OZ OINT TP SCH (08:12)
[2023-10-22] MEDS: PROSOURCE / PROSTAT (PYXIS) 30 ML UDC PO SCH (08:12)
[2023-10-22] MEDS: CARVEDILOL 6.25 MG TABLET PO SCH ×2 (08:12→17:00)
[2023-10-22] MEDS: AMOX/CLAVULANATE 250 MG TABLET PO SCH ×2 (08:47→17:17)
[2023-10-22 16:00] VITALS: BP 121/57; TEMP 98; O2SAT 94
[2023-10-22 21:18] VITALS: BP 120/51; TEMP 97.9; O2SAT 94
[2023-10-22] MEDS: MIRTAZAPINE 15 MG TABLET PO SCH (21:37)
[2023-10-22] MEDS: OLANZAPINE 2.5 MG TABLET PO SCH (21:37)
[2023-10-22] MEDS: ATORVASTATIN 10 MG TABLET PO SCH (21:37)
[2023-10-23 08:00] VITALS: BP 140/60; TEMP 99; O2SAT 95
[2023-10-23] MEDS: Z GUARD REMEDY 4 OZ OINT TP SCH (10:52)
[2023-10-23] MEDS: CLOTRIMAZOLE 1% 15 GM TUBE TP SCH ×2 (10:52→16:53)
[2023-10-23] MEDS: DIGOXIN 0.125 MG TABLET PO SCH (10:57)
[2023-10-23] MEDS: ASPIRIN 81 MG TAB.CHEW PO SCH (10:57)
[2023-10-23] MEDS: CARVEDILOL 6.25 MG TABLET PO SCH ×3 (10:57→17:00)
[2023-10-23] MEDS: CHOLECALCIFEROL 1,000 UNIT TABLET (VIT D3) PO SCH (10:57)
[2023-10-23] MEDS: AMLODIPINE BESYLATE 5 MG TABLET PO SCH (10:58)
[2023-10-23] MEDS: AMIODARONE HCL 200 MG TABLET PO SCH ×3 (10:59→17:00)
[2023-10-23] MEDS: AMOX/CLAVULANATE 250 MG TABLET PO SCH ×3 (10:59→17:00)
[2023-10-23] MEDS: ENSURE ENLIVE 237 ML LIQUID (VANILLA) PO SCH (11:00)
[2023-10-23] MEDS: DOCUSATE SODIUM 100 MG CAPSULE PO SCH ×3 (11:10→17:00)
[2023-10-23] MEDS: RIVAROXABAN 15 MG TABLET PO SCH (11:11)
[2023-10-23] MEDS: MULTIVIT W/MINERALS 1 TAB TABLET PO SCH (11:11)
[2023-10-23] MEDS: PANTOPRAZOLE 40 MG TABLET.DR PO SCH (11:11)
[2023-10-23] MEDS: PROSOURCE / PROSTAT (PYXIS) 30 ML UDC PO SCH (12:31)
[2023-10-23 16:00] VITALS: BP 117/56; TEMP 98.2; O2SAT 93
[2023-10-23 19:49] VITALS: BP 110/71; TEMP 97.7; O2SAT 97
[2023-10-23 19:51] VITALS: BP 128/53; TEMP 98.1; O2SAT 93
[2023-10-23] MEDS: ATORVASTATIN 10 MG TABLET PO SCH (21:27)
[2023-10-23] MEDS: MIRTAZAPINE 15 MG TABLET PO SCH (21:27)
[2023-10-23] MEDS: OLANZAPINE 2.5 MG TABLET PO SCH (21:27)
[2023-10-24 08:00] VITALS: BP 110/52; TEMP 98.7; O2SAT 96
[2023-10-24] MEDS: PANTOPRAZOLE 40 MG TABLET.DR PO SCH (09:37)
[2023-10-24] MEDS: ASPIRIN 81 MG TAB.CHEW PO SCH (09:37)
[2023-10-24] MEDS: DIGOXIN 0.125 MG TABLET PO SCH (09:38)
[2023-10-24] MEDS: DOCUSATE SODIUM 100 MG CAPSULE PO SCH ×2 (09:38→16:50)
[2023-10-24] MEDS: AMLODIPINE BESYLATE 5 MG TABLET PO SCH (09:38)
[2023-10-24] MEDS: MULTIVIT W/MINERALS 1 TAB TABLET PO SCH (09:38)
[2023-10-24] MEDS: CHOLECALCIFEROL 1,000 UNIT TABLET (VIT D3) PO SCH (09:38)
[2023-10-24] MEDS: CARVEDILOL 6.25 MG TABLET PO SCH ×2 (09:38→16:51)
[2023-10-24] MEDS: AMIODARONE HCL 200 MG TABLET PO SCH ×2 (09:39→16:51)
[2023-10-24] MEDS: AMOX/CLAVULANATE 250 MG TABLET PO SCH ×2 (09:39→16:50)
[2023-10-24] MEDS: CLOTRIMAZOLE 1% 15 GM TUBE TP SCH ×2 (09:40→16:52)
[2023-10-24] MEDS: Z GUARD REMEDY 4 OZ OINT TP SCH (09:40)
[2023-10-24] MEDS: ENSURE ENLIVE 237 ML LIQUID (VANILLA) PO SCH (09:42)
[2023-10-24] MEDS: RIVAROXABAN 15 MG TABLET PO SCH (09:42)
[2023-10-24] MEDS: PROSOURCE / PROSTAT (PYXIS) 30 ML UDC PO SCH (09:42)
[2023-10-24 16:00] VITALS: BP 105/50; TEMP 98; O2SAT 96
[2023-10-24 20:01] LABS: APPEARANCE,URINE TURBID (CLEAR); BILIRUBIN,URINE NEGATIVE (NEGATIVE); BLOOD, URINE 3+ Ery/uL (NEGATIVE); COLOR,URINE YELLOW (YELLOW); KETONES,URINE NEGATIVE (NEGATIVE); LEUKOCYTE ESTERASE ,URINE 3+ (NEGATIVE); NITRITE, URINE NEGATIVE (NEGATIVE); PROTEIN,URINE 2+ mg/dl (NEGATIVE); UGLUCOSE NEGATIVE (NEGATIVE); UROBILINOGEN,URINE 0.2 EU/dL (0.2)
[2023-10-24 20:18] LABS: CREATININE, URINE 85.3 MG/DL (30.0-125.0); URINE TOTAL PROTEIN 225.7 mg/dL (0-11.9)
[2023-10-24 21:28] VITALS: BP 102/60; TEMP 98.4; O2SAT 96
[2023-10-24] MEDS: ATORVASTATIN 10 MG TABLET PO SCH (21:33)
[2023-10-24] MEDS: MIRTAZAPINE 15 MG TABLET PO SCH (21:34)
[2023-10-24] MEDS: OLANZAPINE 2.5 MG TABLET PO SCH (21:34)
[2023-10-24 21:43] LABS: ADD URINE CULTURE YES; BACTERIA,URINE 4+ /HPF (None Seen); MUCUS,URINE Many /LPF (None Seen); RBC,URINE 21-50 /HPF (0-2); WBC,URINE TOO NUMEROUS TO COUN /HPF (0-3)
[2023-10-24 22:48] LABS: EOSINOPHIL,URINE None Seen
[2023-10-25 08:00] VITALS: BP 128/54; TEMP 97.9; O2SAT 97
[2023-10-25] MEDS: MULTIVIT W/MINERALS 1 TAB TABLET PO SCH (09:37)
[2023-10-25] MEDS: DOCUSATE SODIUM 100 MG CAPSULE PO SCH (09:37)
[2023-10-25] MEDS: PANTOPRAZOLE 40 MG TABLET.DR PO SCH (09:37)
[2023-10-25] MEDS: ASPIRIN 81 MG TAB.CHEW PO SCH (09:38)
[2023-10-25] MEDS: RIVAROXABAN 15 MG TABLET PO SCH (09:40)
[2023-10-25] MEDS: AMLODIPINE BESYLATE 5 MG TABLET PO SCH (09:41)
[2023-10-25] MEDS: CARVEDILOL 6.25 MG TABLET PO SCH (09:41)
[2023-10-25] MEDS: PROSOURCE / PROSTAT (PYXIS) 30 ML UDC PO SCH (09:41)
[2023-10-25] MEDS: ENSURE ENLIVE 237 ML LIQUID (VANILLA) PO SCH (09:42)
[2023-10-25 09:44] VITALS: BP 128/54
[2023-10-25] MEDS: AMIODARONE HCL 200 MG TABLET PO SCH (09:44)
[2023-10-25] MEDS: DIGOXIN 0.125 MG TABLET PO SCH (09:44)
[2023-10-25] MEDS: AMOX/CLAVULANATE 250 MG TABLET PO SCH (09:47)
[2023-10-25] MEDS: CLOTRIMAZOLE 1% 15 GM TUBE TP SCH (09:48)
[2023-10-25] MEDS: Z GUARD REMEDY 4 OZ OINT TP SCH (09:49)
[2023-10-25] MEDS: CHOLECALCIFEROL 1,000 UNIT TABLET (VIT D3) PO SCH (09:54)
[2023-10-25] MEDS ORDERED: MAG30ORA PO (15:31)
[2023-10-25] MEDS ORDERED: POLY17PO4 PO (15:31)
[2023-10-25] MEDS ORDERED: AMOX-427 PO (15:31)
[2023-10-25] MEDS ORDERED: ZOLP5TAB8 PO (15:31)
[2023-10-25] MEDS ORDERED: ALLA266C2 TP (15:31)
[2023-10-25] MEDS ORDERED: LACT-246 PO (15:31)
[2023-10-25] MEDS ORDERED: OLAN2.5T3 PO (15:31)
[2023-10-25] MEDS ORDERED: MIRT7.5T10 PO (15:31)
[2023-10-25] MEDS ORDERED: CLOT15CR27 TP (15:31)
[2023-10-25] MEDS ORDERED: LORA-259 PO (15:31)
== END 2023-10-25 14:24 | disposition short-term general hospital (02) | DRG 885 ==
LOC: ER 21:21 → GPS 10-14 08:10
PROVIDERS: ADMIT Psychiatry & Neurology Psychiatry; ATTEND Nurse Practitioner Acute Care
DX: F33.3 Major depressive disorder, recurrent, severe with psychotic symptoms (principal); E43 Unspecified severe protein-calorie malnutrition; N17.0 Acute kidney failure with tubular necrosis; N18.9 Chronic kidney disease, unspecified; I13.0 Hypertensive heart and chronic kidney disease with heart failure and stage 1 through stage 4 chronic kidney disease, or unspecified chronic kidney disease; I48.20 Chronic atrial fibrillation, unspecified; N39.0 Urinary tract infection, site not specified; R45.851 Suicidal ideations; F29 Unspecified psychosis not due to a substance or known physiological condition; E78.5 Hyperlipidemia, unspecified; E88.09 Other disorders of plasma-protein metabolism, not elsewhere classified; K21.9 Gastro-esophageal reflux disease without esophagitis; Z79.01 Long term (current) use of anticoagulants; Z87.11 Personal history of peptic ulcer disease; F39 Unspecified mood [affective] disorder; Z68.25 Body mass index [BMI] 25.0-25.9, adult; Z73.6 Limitation of activities due to disability; Z20.822 Contact with and (suspected) exposure to COVID-19; I50.9 Heart failure, unspecified
CPT/HCPCS: 36415; 80048-TC; 80053-TC; 80076-TC; 81001; 82570-TC; 82962-TC; 83735-TC; 84100-TC; 84300-TC; 85025-TC; 87081-TC; 87086-TC; 97110-TC; 97116-TC; 97530-TC; G0480

== ENCOUNTER 2023-10-25 14:54 | Inpatient (IN) | payer MEDICARE, OTHER ==
[~2023-10-25] VITALS: Ht 157.5 cm; Wt 62.7 kg
[~2023-10-25 14:54] MED LIST changes: +ACET-2605 PO; +ACET-868 PO; +AMIN30LI2 PO; +AMIO200T5 PO; +ASPI-1169 PO; +ATOR20TA PO; +BENZ-13 PO; +BISA10SU11 RC; +BUME1TAB8 PO; +CHOL200059 PO; +CLON0.1T PO; +DIGO125T PO; +DILT30TA14 PO; +DOCU100C36 PO; +HYDR-4303 PO; +IODOPHOR BNOSTRILS; +IPRA3AMP22 IH; +MAGN400O6 PO; +MELA3TAB41 PO; +METO100T14 PO; +MULT-213 PO; +NA P133E RC; +NYST1POW2 MC; +PANT40TA2 PO; +POLY119P3 PO; +RIVA15TA PO; +SACU1TAB7 PO; +[UNRECOGNIZED DRUG - CODE] TP
[2023-10-25] MEDS ORDERED: OLAN2.5T3 PO (15:31)
[2023-10-25] MEDS ORDERED: LACT-246 PO (15:31)
[2023-10-25] MEDS ORDERED: POLY17PO4 PO (15:31)
[2023-10-25] MEDS ORDERED: LORA-259 PO (15:31)
[2023-10-25] MEDS ORDERED: AMOX-427 PO (15:31)
[2023-10-25] MEDS ORDERED: MAG30ORA PO (15:31)
[2023-10-25] MEDS ORDERED: CLOT15CR27 TP (15:31)
[2023-10-25] MEDS ORDERED: ALLA266C2 TP (15:31)
[2023-10-25] MEDS ORDERED: ZOLP5TAB8 PO (15:31)
[2023-10-25] MEDS ORDERED: MIRT7.5T10 PO (15:31)
[2023-10-25] MEDS ORDERED: ACETAMINOPHEN ES 500 MG TABLET PO PRN (16:30)
[2023-10-25] MEDS ORDERED: BENZONATATE 100 MG CAPSULE PO PRN (16:30)
[2023-10-25] MEDS ORDERED: POLYETHYLENE GLYCOL 3350 17 GM POWD.PACK PO PRN (16:30)
[2023-10-25] MEDS ORDERED: ONDANSETRON HCL/PF 4 MG/2 ML VIAL IVP PRN (16:30)
[2023-10-25] MEDS ORDERED: Z GUARD REMEDY 4 OZ OINT TP PRN (16:30)
[2023-10-25] MEDS ORDERED: LORAZEPAM 1 MG TABLET PO PRN (16:30)
[2023-10-25] MEDS ORDERED: BISACODYL SUPP (10 MG) 10 MG/SUPP.RECT SUPP.RECT RC PRN (16:30)
[2023-10-25] MEDS ORDERED: HYDROCODONE/APAP 5/325MG TABLET PO PRN (16:30)
[2023-10-25] MEDS: DOCUSATE SODIUM 100 MG CAPSULE PO SCH (17:31)
[2023-10-25] MEDS: AMIODARONE HCL 200 MG TABLET PO SCH (17:32)
[2023-10-25] MEDS: CARVEDILOL 6.25 MG TABLET PO SCH (17:32)
[2023-10-25] MEDS: CLOTRIMAZOLE 1% 15 GM TUBE TP SCH (17:40)
[2023-10-25] MEDS: MEROPENEM 500 MG in IV NS 0.9% 50 ML IV SCH (17:57)
[2023-10-25] MEDS: IV NS 0.9% 1,000 ML IV PRN (18:25)
[2023-10-25 20:00] VITALS: BP 127/58; TEMP 97.9; O2SAT 95
[2023-10-25] MEDS: OLANZAPINE 2.5 MG TABLET PO SCH (21:22)
[2023-10-25] MEDS: MIRTAZAPINE 15 MG TABLET PO SCH (21:22)
[2023-10-26] MEDS: IV NS 0.9% 1,000 ML IV PRN (05:01)
[2023-10-26] MEDS: MEROPENEM 500 MG in IV NS 0.9% 50 ML IV SCH ×2 (05:02→17:45)
[2023-10-26 08:10] LABS: BASOPHILS # (AUTO) 0.1 K/uL (0.0-0.2); EOSINOPHILS # (AUTO) 0.2 K/uL (0.0-0.7); EOSINOPHILS % (AUTO) 2.4 % (0.0-6.0); HEMATOCRIT 31 % (33-45); HEMOGLOBIN 10.3 g/dL (11.5-14.8); LYMPHOCYTES # (AUTO) 0.8 K/uL (0.8-4.8); LYMPHOCYTES % (AUTO) 8.4 % (20.0-44.0); MEAN CORPUSCULAR HEMOGLOBIN 30 PG (26.0-33.0); MEAN CORPUSCULAR HGB CONC 33 g/dl (31.0-36.0); MEAN CORPUSCULAR VOLUME 92 fL (82-100); MONOCYTES % (AUTO) 10.5 % (2.0-12.0); NEUTROPHILS # (AUTO) 7.7 K/uL (1.8-8.9); NEUTROPHILS % (AUTO) 77.7 % (43.0-81.0); PLATELET COUNT (AUTO) 350 K/uL (150-450); RED CELL DISTRIBUTION WIDTH 14.8 % (11.5-15.0)
[2023-10-26 08:28] LABS: CALCIUM, SERUM 8.3 mg/dL (8.5-10.1); CARBON DIOXIDE 21 mmol/L (21-32); CHLORIDE 103 mmol/L (98-107); CREATININE 2.1 mg/dL (0.6-1.3); GLUCOSE 77 mg/dL (74-106); MAGNESIUM 2.4 mg/dL (1.8-2.4); PHOSPHORUS 3.6 mg/dL (2.5-4.9); POTASSIUM 4.1 mmol/L (3.5-5.1); SODIUM SERUM 135 mmol/L (136-145); UREA NITROGEN, BLOOD 56 mg/dL (7-18)
[2023-10-26 08:35] VITALS: BP 123/44; TEMP 97.7; O2SAT 94
[2023-10-26] MEDS: CARVEDILOL 6.25 MG TABLET PO SCH ×2 (09:00→17:00)
[2023-10-26] MEDS: DIGOXIN 0.125 MG TABLET PO SCH (09:00)
[2023-10-26] MEDS: AMIODARONE HCL 200 MG TABLET PO SCH ×2 (09:00→17:00)
[2023-10-26] MEDS: AMLODIPINE BESYLATE 5 MG TABLET PO SCH (09:00)
[2023-10-26] MEDS: CHOLECALCIFEROL 1,000 UNIT TABLET (VIT D3) PO SCH (10:16)
[2023-10-26] MEDS: ASPIRIN 81 MG TAB.CHEW PO SCH (10:16)
[2023-10-26] MEDS: PANTOPRAZOLE 40 MG TABLET.DR PO SCH (10:17)
[2023-10-26] MEDS: DOCUSATE SODIUM 100 MG CAPSULE PO SCH ×2 (10:17→17:41)
[2023-10-26] MEDS: MULTIVIT W/MINERALS 1 TAB TABLET PO SCH (10:17)
[2023-10-26] MEDS: PROSTAT (PYXIS) 30 ML UDC PO SCH (10:18)
[2023-10-26] MEDS: RIVAROXABAN 15 MG TABLET PO SCH (10:20)
[2023-10-26] MEDS: ENSURE ENLIVE 237 ML LIQUID (VANILLA) PO SCH (10:21)
[2023-10-26] MEDS: CLOTRIMAZOLE 1% 15 GM TUBE TP SCH ×2 (14:01→17:41)
[2023-10-26 16:14] VITALS: BP 137/46; TEMP 98.1; O2SAT 94
[2023-10-26 20:00] VITALS: BP 149/59; TEMP 98.4; O2SAT 95
[2023-10-26] MEDS: OLANZAPINE 2.5 MG TABLET PO SCH (21:34)
[2023-10-26] MEDS: MIRTAZAPINE 15 MG TABLET PO SCH (21:35)
[2023-10-26 23:19] LABS: EOSINOPHILS % (MANUAL) 5 % (0-4); LYMPHOCYTES % (MANUAL) 10 % (16-48); MONOCYTES % (MANUAL) 8 % (0-11.0); NEUTROPHILS % (MANUAL) 77 (42-76); PLATELET ESTIMATE ADEQUATE
[2023-10-27] MEDS: IV NS 0.9% 1,000 ML IV PRN ×2 (04:13→17:46)
[2023-10-27] MEDS: MEROPENEM 500 MG in IV NS 0.9% 50 ML IV SCH ×2 (05:01→17:46)
[2023-10-27] MEDS: PANTOPRAZOLE 40 MG TABLET.DR PO SCH (07:30)
[2023-10-27] MEDS: CARVEDILOL 6.25 MG TABLET PO SCH ×2 (09:00→17:29)
[2023-10-27] MEDS: PROSTAT (PYXIS) 30 ML UDC PO SCH (09:00)
[2023-10-27] MEDS: DIGOXIN 0.125 MG TABLET PO SCH (09:00)
[2023-10-27] MEDS: AMLODIPINE BESYLATE 5 MG TABLET PO SCH (09:00)
[2023-10-27] MEDS: DOCUSATE SODIUM 100 MG CAPSULE PO SCH ×2 (09:00→17:13)
[2023-10-27] MEDS: CLOTRIMAZOLE 1% 15 GM TUBE TP SCH ×2 (09:00→17:15)
[2023-10-27] MEDS: AMIODARONE HCL 200 MG TABLET PO SCH ×2 (09:00→17:00)
[2023-10-27] MEDS: ENSURE ENLIVE 237 ML LIQUID (VANILLA) PO SCH (09:00)
[2023-10-27 09:34] VITALS: BP 180/104; TEMP 98.4; O2SAT 99
[2023-10-27] MEDS: PROSOURCE / PROSTAT (PYXIS) 30 ML UDC PO SCH ×2 (13:00→17:00)
[2023-10-27 16:15] VITALS: BP_SYST 127; BP_SYST 143; BP_DIAS 42; BP_DIAS 74; TEMP 98.1; TEMP 98.8; O2SAT 95; O2SAT 98
[2023-10-27] MEDS: CHOLECALCIFEROL 1,000 UNIT TABLET (VIT D3) PO SCH (17:12)
[2023-10-27] MEDS: ASPIRIN 81 MG TAB.CHEW PO SCH (17:13)
[2023-10-27] MEDS: MULTIVIT W/MINERALS 1 TAB TABLET PO SCH (17:14)
[2023-10-27] MEDS: RIVAROXABAN 15 MG TABLET PO SCH (17:16)
[2023-10-27 20:00] VITALS: BP 145/72; TEMP 98.5; O2SAT 95
[2023-10-27] MEDS: MIRTAZAPINE 15 MG TABLET PO SCH (21:28)
[2023-10-27] MEDS: OLANZAPINE 2.5 MG TABLET PO SCH (21:28)
[2023-10-28] MEDS: MEROPENEM 500 MG in IV NS 0.9% 50 ML IV SCH ×2 (05:26→17:52)
[2023-10-28 07:25] LABS: BASOPHILS # (AUTO) 0.1 K/uL (0.0-0.2); BASOPHILS % (AUTO) 1.3 % (0.0-2.0); EOSINOPHILS # (AUTO) 0.4 K/uL (0.0-0.7); EOSINOPHILS % (AUTO) 4.7 % (0.0-6.0); HEMATOCRIT 31 % (33-45); HEMOGLOBIN 10.3 g/dL (11.5-14.8); LYMPHOCYTES # (AUTO) 1.8 K/uL (0.8-4.8); LYMPHOCYTES % (AUTO) 19.2 % (20.0-44.0); MEAN CORPUSCULAR HEMOGLOBIN 30 PG (26.0-33.0); MEAN CORPUSCULAR HGB CONC 33 g/dl (31.0-36.0); MEAN CORPUSCULAR VOLUME 90 fL (82-100); MONOCYTES # (AUTO) 0.8 K/uL (0.1-1.30); MONOCYTES % (AUTO) 8.7 % (2.0-12.0); NEUTROPHILS # (AUTO) 6.1 K/uL (1.8-8.9); NEUTROPHILS % (AUTO) 66.1 % (43.0-81.0); PLATELET COUNT (AUTO) 394 K/uL (150-450); RED BLOOD CELL COUNT(AUTO) 3.42 MIL/uL (4.0-5.2); RED CELL DISTRIBUTION WIDTH 14.6 % (11.5-15.0); WHITE BLOOD COUNT (AUTO) 9.2 K/uL (4.3-11.0)
[2023-10-28] MEDS: PANTOPRAZOLE 40 MG TABLET.DR PO SCH (07:30)
[2023-10-28 08:13] LABS: ALANINE AMINOTRANSFERASE 45 U/L (12-78); ALKALINE PHOSPHATASE 95 U/L (46-116); ASPARTATE AMINOTRANSFERASE 31 U/L (15-37); BILIRUBIN,TOTAL 0.2 mg/dL (0.2-1.0); CALCIUM, SERUM 8.6 mg/dL (8.5-10.1); CARBON DIOXIDE 21 mmol/L (21-32); CHLORIDE 110 mmol/L (98-107); CREATININE 1.6 mg/dL (0.6-1.3); GLUCOSE 82 mg/dL (74-106); MAGNESIUM 2.4 mg/dL (1.8-2.4); PHOSPHORUS 3.2 mg/dL (2.5-4.9); POTASSIUM 4.5 mmol/L (3.5-5.1); SODIUM SERUM 141 mmol/L (136-145); TOTAL PROTEIN, SERUM 6.4 g/dL (6.4-8.2); UREA NITROGEN, BLOOD 44 mg/dL (7-18)
[2023-10-28 08:16] LABS: CREATINE KINASE, TOTAL 11 U/L (26-192)
[2023-10-28 08:21] LABS: ALBUMIN 1.5 g/dL (3.4-5.0)
[2023-10-28] MEDS: CARVEDILOL 6.25 MG TABLET PO SCH ×2 (09:00→17:46)
[2023-10-28] MEDS: PROSOURCE / PROSTAT (PYXIS) 30 ML UDC PO SCH ×3 (09:00→17:00)
[2023-10-28] MEDS: CLOTRIMAZOLE 1% 15 GM TUBE TP SCH ×2 (09:00→17:00)
[2023-10-28] MEDS: AMIODARONE HCL 200 MG TABLET PO SCH ×2 (09:00→17:41)
[2023-10-28] MEDS: PROSTAT (PYXIS) 30 ML UDC PO SCH (09:00)
[2023-10-28] MEDS: DIGOXIN 0.125 MG TABLET PO SCH (09:00)
[2023-10-28] MEDS: DOCUSATE SODIUM 100 MG CAPSULE PO SCH ×2 (09:00→17:45)
[2023-10-28 11:44] LABS: EOSINOPHILS % (MANUAL) 2 % (0-4); LYMPHOCYTES % (MANUAL) 24 % (16-48); MONOCYTES % (MANUAL) 5 % (0-11.0); NEUTROPHILS % (MANUAL) 69 (42-76); PLATELET ESTIMATE ADEQUATE
[2023-10-28 11:46] LABS: ANISOCYTOSIS 2+; HYPOCHROMASIA 2+
[2023-10-28 11:47] LABS: OVALOCYTES 1+; TEAR DROP CELLS 1+
[2023-10-28 16:00] VITALS: BP 151/55; TEMP 98.8; O2SAT 96
[2023-10-28] MEDS: CHOLECALCIFEROL 1,000 UNIT TABLET (VIT D3) PO SCH (17:40)
[2023-10-28] MEDS: ASPIRIN 81 MG TAB.CHEW PO SCH (17:43)
[2023-10-28] MEDS: MULTIVIT W/MINERALS 1 TAB TABLET PO SCH (17:44)
[2023-10-28] MEDS: AMLODIPINE BESYLATE 5 MG TABLET PO SCH (17:45)
[2023-10-28] MEDS: RIVAROXABAN 15 MG TABLET PO SCH (17:47)
[2023-10-28] MEDS: ENSURE ENLIVE 237 ML LIQUID (VANILLA) PO SCH (17:49)
[2023-10-28] MEDS: IV NS 0.9% 1,000 ML IV PRN (17:52)
[2023-10-28 20:00] VITALS: BP 134/56; TEMP 98.3; O2SAT 95
[2023-10-28 21:30] LABS: APPEARANCE,URINE CLOUDY (CLEAR); BILIRUBIN,URINE NEGATIVE (NEGATIVE); BLOOD, URINE 3+ Ery/uL (NEGATIVE); COLOR,URINE YELLOW (YELLOW); KETONES,URINE NEGATIVE (NEGATIVE); LEUKOCYTE ESTERASE ,URINE 3+ (NEGATIVE); NITRITE, URINE NEGATIVE (NEGATIVE); PH,URINE 6.5 (5.0-8.0); PROTEIN,URINE 1+ mg/dl (NEGATIVE); UGLUCOSE NEGATIVE (NEGATIVE); UROBILINOGEN,URINE 0.2 EU/dL (0.2)
[2023-10-28 21:43] LABS: CREATININE, URINE 52.3 MG/DL (30.0-125.0); URINE TOTAL PROTEIN 106.6 mg/dL (0-11.9)
[2023-10-28] MEDS: MIRTAZAPINE 15 MG TABLET PO SCH (21:56)
[2023-10-28] MEDS: OLANZAPINE 2.5 MG TABLET PO SCH (21:56)
[2023-10-28 22:00] LABS: ADD URINE CULTURE YES; BACTERIA,URINE 4+ /HPF (None Seen); MUCUS,URINE Moderate /LPF (None Seen); RBC,URINE 21-50 /HPF (0-2); WBC,URINE 21-50 /HPF (0-3)
[2023-10-28 22:58] LABS: EOSINOPHIL,URINE None Seen
[2023-10-29] VITALS: BP 159/58; TEMP 97.9; O2SAT 95
[2023-10-29] MEDS: IV NS 0.9% 1,000 ML IV PRN ×2 (01:52→18:01)
[2023-10-29] MEDS: MEROPENEM 500 MG in IV NS 0.9% 50 ML IV SCH ×2 (05:03→17:41)
[2023-10-29 07:22] LABS: BASOPHILS # (AUTO) 0.1 K/uL (0.0-0.2); BASOPHILS % (AUTO) 1.3 % (0.0-2.0); EOSINOPHILS # (AUTO) 0.4 K/uL (0.0-0.7); EOSINOPHILS % (AUTO) 5.7 % (0.0-6.0); HEMATOCRIT 29 % (33-45); HEMOGLOBIN 9.6 g/dL (11.5-14.8); LYMPHOCYTES # (AUTO) 1.4 K/uL (0.8-4.8); LYMPHOCYTES % (AUTO) 18.2 % (20.0-44.0); MEAN CORPUSCULAR HEMOGLOBIN 30 PG (26.0-33.0); MEAN CORPUSCULAR HGB CONC 33 g/dl (31.0-36.0); MEAN CORPUSCULAR VOLUME 90 fL (82-100); MONOCYTES # (AUTO) 0.8 K/uL (0.1-1.30); MONOCYTES % (AUTO) 10.1 % (2.0-12.0); NEUTROPHILS % (AUTO) 64.7 % (43.0-81.0); PLATELET COUNT (AUTO) 384 K/uL (150-450); RED BLOOD CELL COUNT(AUTO) 3.21 MIL/uL (4.0-5.2); RED CELL DISTRIBUTION WIDTH 14.7 % (11.5-15.0); WHITE BLOOD COUNT (AUTO) 7.8 K/uL (4.3-11.0)
[2023-10-29 07:50] LABS: CALCIUM, SERUM 8.5 mg/dL (8.5-10.1); CREATININE 1.3 mg/dL (0.6-1.3); MAGNESIUM 2.2 mg/dL (1.8-2.4); PHOSPHORUS 3.1 mg/dL (2.5-4.9); POTASSIUM 4.1 mmol/L (3.5-5.1)
[2023-10-29 08:17] VITALS: BP 148/54; TEMP 97.7; O2SAT 98
[2023-10-29] MEDS: AMIODARONE HCL 200 MG TABLET PO SCH ×2 (08:43→17:43)
[2023-10-29] MEDS: PANTOPRAZOLE 40 MG TABLET.DR PO SCH (08:43)
[2023-10-29] MEDS: AMLODIPINE BESYLATE 5 MG TABLET PO SCH (08:43)
[2023-10-29] MEDS: DIGOXIN 0.125 MG TABLET PO SCH (08:43)
[2023-10-29] MEDS: ASPIRIN 81 MG TAB.CHEW PO SCH (09:00)
[2023-10-29] MEDS: PROSOURCE / PROSTAT (PYXIS) 30 ML UDC PO SCH ×3 (09:00→17:00)
[2023-10-29] MEDS: MULTIVIT W/MINERALS 1 TAB TABLET PO SCH (09:00)
[2023-10-29] MEDS: ENSURE ENLIVE 237 ML LIQUID (VANILLA) PO SCH (09:00)
[2023-10-29] MEDS: CHOLECALCIFEROL 1,000 UNIT TABLET (VIT D3) PO SCH (09:00)
[2023-10-29] MEDS: PROSTAT (PYXIS) 30 ML UDC PO SCH (09:00)
[2023-10-29] MEDS: CLOTRIMAZOLE 1% 15 GM TUBE TP SCH ×2 (09:00→17:00)
[2023-10-29] MEDS: DOCUSATE SODIUM 100 MG CAPSULE PO SCH ×2 (09:00→17:00)
[2023-10-29] MEDS: RIVAROXABAN 15 MG TABLET PO SCH (09:00)
[2023-10-29] MEDS: CARVEDILOL 6.25 MG TABLET PO SCH ×2 (09:00→17:00)
[2023-10-29 16:05] VITALS: BP 130/48; TEMP 98.4; O2SAT 96
[2023-10-29 20:00] VITALS: BP 159/58; TEMP 97.9; O2SAT 95
[2023-10-29] MEDS: OLANZAPINE 2.5 MG TABLET PO SCH (22:00)
[2023-10-29] MEDS: MIRTAZAPINE 15 MG TABLET PO SCH (22:00)
[2023-10-30] MEDS: MEROPENEM 500 MG in IV NS 0.9% 50 ML IV SCH ×2 (05:00→17:24)
[2023-10-30 07:00] VITALS: BP 150/61; TEMP 97.8; O2SAT 97
[2023-10-30] MEDS: PANTOPRAZOLE 40 MG TABLET.DR PO SCH (07:10)
[2023-10-30 07:55] LABS: BASOPHILS # (AUTO) 0.1 K/uL (0.0-0.2); BASOPHILS % (AUTO) 1.9 % (0.0-2.0); EOSINOPHILS # (AUTO) 0.6 K/uL (0.0-0.7); HEMATOCRIT 28 % (33-45); HEMOGLOBIN 9.2 g/dL (11.5-14.8); LYMPHOCYTES # (AUTO) 1.3 K/uL (0.8-4.8); LYMPHOCYTES % (AUTO) 17.1 % (20.0-44.0); MEAN CORPUSCULAR HEMOGLOBIN 30 PG (26.0-33.0); MEAN CORPUSCULAR HGB CONC 33 g/dl (31.0-36.0); MEAN CORPUSCULAR VOLUME 90 fL (82-100); MONOCYTES # (AUTO) 0.7 K/uL (0.1-1.30); MONOCYTES % (AUTO) 9.7 % (2.0-12.0); NEUTROPHILS # (AUTO) 4.9 K/uL (1.8-8.9); NEUTROPHILS % (AUTO) 63.3 % (43.0-81.0); PLATELET COUNT (AUTO) 380 K/uL (150-450); RED BLOOD CELL COUNT(AUTO) 3.07 MIL/uL (4.0-5.2); RED CELL DISTRIBUTION WIDTH 14.7 % (11.5-15.0); WHITE BLOOD COUNT (AUTO) 7.7 K/uL (4.3-11.0)
[2023-10-30] MEDS: ASPIRIN 81 MG TAB.CHEW PO SCH (08:47)
[2023-10-30] MEDS: AMLODIPINE BESYLATE 5 MG TABLET PO SCH (08:47)
[2023-10-30] MEDS: DIGOXIN 0.125 MG TABLET PO SCH (08:48)
[2023-10-30] MEDS: AMIODARONE HCL 200 MG TABLET PO SCH ×2 (08:48→16:15)
[2023-10-30] MEDS: CARVEDILOL 6.25 MG TABLET PO SCH ×2 (08:49→16:14)
[2023-10-30] MEDS: PROSOURCE / PROSTAT (PYXIS) 30 ML UDC PO SCH ×3 (08:51→16:17)
[2023-10-30] MEDS: DOCUSATE SODIUM 100 MG CAPSULE PO SCH ×2 (08:52→16:15)
[2023-10-30] MEDS: MULTIVIT W/MINERALS 1 TAB TABLET PO SCH (08:52)
[2023-10-30] MEDS: CHOLECALCIFEROL 1,000 UNIT TABLET (VIT D3) PO SCH (08:52)
[2023-10-30] MEDS: PROSTAT (PYXIS) 30 ML UDC PO SCH (08:52)
[2023-10-30] MEDS: RIVAROXABAN 15 MG TABLET PO SCH (08:54)
[2023-10-30 08:55] LABS: CALCIUM, SERUM 8.4 mg/dL (8.5-10.1); CARBON DIOXIDE 19 mmol/L (21-32); CHLORIDE 111 mmol/L (98-107); CREATININE 1.1 mg/dL (0.6-1.3); GLUCOSE 86 mg/dL (74-106); MAGNESIUM 1.8 mg/dL (1.8-2.4); PHOSPHORUS 2.4 mg/dL (2.5-4.9); POTASSIUM 3.9 mmol/L (3.5-5.1); SODIUM SERUM 142 mmol/L (136-145); UREA NITROGEN, BLOOD 28 mg/dL (7-18)
[2023-10-30] MEDS: ENSURE ENLIVE 237 ML LIQUID (VANILLA) PO SCH (08:57)
[2023-10-30] MEDS: CLOTRIMAZOLE 1% 15 GM TUBE TP SCH ×2 (08:57→16:17)
[2023-10-30 10:10] LABS: PTH, INTACT 49 pg/mL (15-65)
[2023-10-30 12:03] LABS: ANISOCYTOSIS 1+; EOSINOPHILS % (MANUAL) 7 % (0-4); LYMPHOCYTES % (MANUAL) 16 % (16-48); MONOCYTES % (MANUAL) 6 % (0-11.0); NEUTROPHILS % (MANUAL) 71 (42-76); PLATELET ESTIMATE ADEQUATE
[2023-10-30 16:00] VITALS: BP 123/65; TEMP 97.7; O2SAT 96
[2023-10-30] MEDS ORDERED: K PHOS NEUTRAL 250 MG TABLET PO ONE (16:00)
[2023-10-30 16:15] VITALS: BP 123/65
[2023-10-31 06:08] LABS: *SPE A/G RATIO 0.5 (0.7-1.7); *SPE ALBUMIN 1.6 g/dL (2.9-4.4); *SPE ALPHA-1-GLOBULIN 0.5 g/dL (0.0-0.4); *SPE ALPHA-2-GLOBULIN 1.3 g/dL (0.4-1.0); *SPE BETA GLOBULIN 1.1 g/dL (0.7-1.3); *SPE GLOBULIN, TOTAL 3.5 g/dL (2.2-3.9); *SPE M-SPIKE Not Observed g/dL (Not Observed); *SPE PROTEIN TOTAL 5.1 g/dL (6.0-8.5); *SPEGAMMA GLOBULIN 0.7 g/dL (0.4-1.8)
[2023-10-31] MEDS ORDERED: OLANZAPINE 2.5 MG TABLET PO SCH (09:00)
== END 2023-10-30 18:30 | DRG 682 ==
LOC: MED 14:54
PROVIDERS: ADMIT Student in an Organized Health Care Education/Training Program; ATTEND Student in an Organized Health Care Education/Training Program
DX: N17.0 Acute kidney failure with tubular necrosis (principal); E43 Unspecified severe protein-calorie malnutrition; N39.0 Urinary tract infection, site not specified; I13.0 Hypertensive heart and chronic kidney disease with heart failure and stage 1 through stage 4 chronic kidney disease, or unspecified chronic kidney disease; E87.1 Hypo-osmolality and hyponatremia; I48.20 Chronic atrial fibrillation, unspecified; Z16.24 Resistance to multiple antibiotics; F32.3 Major depressive disorder, single episode, severe with psychotic features; I50.9 Heart failure, unspecified; N18.9 Chronic kidney disease, unspecified; E78.5 Hyperlipidemia, unspecified; B96.4 Proteus (mirabilis) (morganii) as the cause of diseases classified elsewhere; D64.9 Anemia, unspecified; E88.09 Other disorders of plasma-protein metabolism, not elsewhere classified; Z79.01 Long term (current) use of anticoagulants; F39 Unspecified mood [affective] disorder; Z73.6 Limitation of activities due to disability; F29 Unspecified psychosis not due to a substance or known physiological condition; Z68.25 Body mass index [BMI] 25.0-25.9, adult
CPT/HCPCS: 36415; 80048-TC; 80053-TC; 81001; 82550-TC; 82570-TC; 83735-TC; 83970; 84100-TC; 84155; 84165; 84300-TC; 84443-TC; 85025-TC; 87086-TC; 97110-TC; 97530-TC; A4223; G0378; J2185; J7030